=== PATIENT | female | born 1950 | race Caucasian/White ===

== ENCOUNTER → 2016-09-01 | Outpatient (CLI) | payer BC ==
--- NOTE | 2016-09-01 13:01 | REP ---
BILATERAL MAMMOGRAM: Bilateral mammogram performed in the MLO and CC projections. Comparison 05/17/2015 as well as other prior exams. Patient reports injury to the upper right breast with bruising 2-3 months ago. Ill-defined parenchymal opacity is seen in that region which is new. The remaining breast parenchyma is unchanged with no other evidence of new mass, architectural distortion or clustered microcalcifications. IMPRESSION: ACR 0 incomplete. Ill-defined parenchymal opacity in the upper right breast likely corresponds to injury and subsequent hematoma in the upper right breast. Recommend spot compression views and ultrasound to further evaluate. ACR 0 incomplete. BI-RADS/ACR category 0 mammogram. Incomplete: Additional imaging and/or prior images are needed before a final assessment can be assigned. This mammogram was interpreted with the aid of an FDA-approved computer-aided detection system. A. Negative x-ray reports should not delay biopsy if a dominant or clinically suspicious mass is present. B. Four to eight percent of cancers are not identified by x-ray. C. Adenosis and dense breasts may obscure an underlying neoplasm. The patient states she has not had a clinical breast exam in over a year. The patient letter being requested is M0.
== END ==
LOC: M WHC 10:07
PROVIDERS: ATTEND Family Medicine
DX: Z01.810 Encounter for preprocedural cardiovascular examination (principal); R92.8 Other abnormal and inconclusive findings on diagnostic imaging of breast; R32 Unspecified urinary incontinence; I10 Essential (primary) hypertension
CPT/HCPCS: 81001; 87086; G0202

== ENCOUNTER → 2016-09-22 | Outpatient (CLI) | payer BC ==
--- NOTE | 2016-09-22 12:01 | REP ---
RIGHT BREAST ULTRASOUND: 09/22/2016. Clinical history: The patient states breast trauma with fall and hematoma in March 2016. Tissue asymmetry on screening and diagnostic ultrasound this month. Comparison: Diagnostic mammogram 09/22/2016, screening 09/01/2016, 05/17/2015, 04/04/2014. Findings: Sonographic evaluation of the central right breast from the 11 to 1 o'clock position. No sonographically definable mass, fluid collection, dilated duct or architectural distortion identified within the parenchyma. Impression: 1. No sonographically definable mass, architectural distortion, cyst or dilated duct in the region of interest noted on the mammogram. Please see mammogram report this date for final assessment and recommendation. Signed by Jos Rowe MD 09/22/2016 05:06 P
--- NOTE | 2016-09-22 12:16 | REP ---
DIAGNOSTIC DIGITAL RIGHT MAMMOGRAM: 09/22/2016 COMPARISON: Breast ultrasound today, screening mammogram 09/01/2016, 05/17/2015, 04/04/2014, 12/05/2012. CLINICAL HISTORY: Trauma 5 months ago. Order states hematoma superior right breast. FINDINGS: Spot magnified right CC, MLO and true MLO images of the central and upper right breast in the area of tissue asymmetry on the screening mammogram earlier this month. The area does not compress out on CC view but does compress somewhat on the true MLO view. There is no mass appearance to this region. Instead it has the appearance of architectural distortion. There is some minor nodular tissue asymmetry laterally in the right breast upper outer quadrant and this is unchanged dating back several years. The right breast ultrasound showed no sonographic abnormality, fluid collection, mass or architectural distortion in the region in question at the noon position right breast. IMPRESSION: BIRADS ACR category 3, probably benign finding. Close interval followup recommended. Given the clinical appearance of the hematoma, appropriate history of trauma and the imaging appearance, I would suggest follow-up imaging with diagnostic right mammogram in 6 months time to document evolutionary changes in this finding. Ultrasound could be performed if clinically needed at that time as well. An earlier reassessment could be made if there are compelling changes to the clinical exam. BI-RADS/ACR category 3 mammogram. Probably benign findings. Initial short-term followup (usually 6 month) examination. This mammogram was interpreted with the aid of an FDA-approved computer-aided detection system. A. Negative x-ray reports should not delay biopsy if a dominant or clinically suspicious mass is present. B. Four to eight percent of cancers are not identified by x-ray. C. Adenosis and dense breasts may obscure an underlying neoplasm. The patient states that she/he has not had a clinical breast exam in over a year. The patient letter being requested is M3. Signed by Jos Rowe MD 09/22/2016 05:07 P
== END ==
LOC: M RAD 10:10
PROVIDERS: ATTEND Family Medicine
DX: R92.8 Other abnormal and inconclusive findings on diagnostic imaging of breast (principal)
CPT/HCPCS: 76642; G0206

== ENCOUNTER → 2017-04-06 | Outpatient (CLI) | payer BC ==
--- NOTE | 2017-04-06 16:23 | REP ---
Digital diagnostic unilateral right breast mammography with CAD: Six views: History: September 22, 2016 prior mammography was BIRADS category three probably benign. There was a history of trauma in a fall with evidence of a hematoma superior right breast. Comparison mammography is also reviewed from May 17, 2015. Mammographic findings: Routine CC MLO and true MLO views were obtained along with rolled CC views. The previously noted area of tissue asymmetry in the right superior breast has regressed in the interval since the August 2016 prior study although it is not completely resolved. A linear fibrotic area is seen on the CC view. This it is disbursed and not visualized on the MLO view. I suspect a small area of fat necrosis at the center of this. No mass lesion is seen. No microcalcification is observed. Impression: BIRADS category II benign right breast imaging. Annual screening mammography can be resumed. This mammogram was interpreted with the aid of an FDA-approved computer-aided detection system. The patient states she/he had a clinical breast exam in August 2016 The patient letter being requested is m2. Signed by Scott Garg MD 04/06/2017 05:31 P
== END ==
LOC: M RAD 13:39
PROVIDERS: ATTEND Family Medicine
DX: R92.8 Other abnormal and inconclusive findings on diagnostic imaging of breast (principal)

== ENCOUNTER 2017-06-16 08:29 | Emergency (ER) | payer BC ==
[~2017-06-16] VITALS: Ht 167.6 cm; Wt 97.7 kg
[2017-06-16] MEDS ORDERED: ASPI1TAB PO (08:47)
[2017-06-16] MEDS ORDERED: OXYC-517 (08:47)
[2017-06-16] MEDS ORDERED: LISINOPRIL-HCTZ (08:47)
[2017-06-16] MEDS ORDERED: CYCLOBENZAPRINE 10 MG TAB PO ONE (09:45)
[2017-06-16] MEDS ORDERED: CYCL10TA PO (09:53)
[2017-06-16 10:08] VITALS: BP 146/78
--- NOTE | 2017-06-16 19:33 | ECGEPIP ---
Stationary ECG Study [facility] - ED Test Date: 2017-06-16 Pat Name: JOHNATHON CHOWDHURY Department: Room: - Gender: F Butcher Helper: demetrice : 1950 Requested By: BLAISE CASTRO PA-C. Order Number: [id number] Reading MD: Blue Dinh Measurements Intervals [place] Rate: 87 P: 49 RI: 190 QRS: -17 QRSD: 105 T: 29 QT: 364 QTc: 439 Interpretive Statements SINUS RHYTHM NO PRIORS FOR COMPARISON Electronically Signed On 06-16-2017 19:33:14 EST by Blue Dinh
== END 2017-06-16 10:09 | disposition home or self-care (01) ==
LOC: M ED 08:29
DX: M62.830 Muscle spasm of back (principal); I10 Essential (primary) hypertension; Z79.82 Long term (current) use of aspirin; Z98.890 Other specified postprocedural states

== ENCOUNTER → 2017-12-08 | Outpatient (REF) | payer MEDICARE | LOC: M SFHCWAGY 15:41 | DX: R30.0 Dysuria (principal) | CPT/HCPCS: 87186 ==

== ENCOUNTER → 2018-04-05 | Outpatient (CLI) | payer MEDICARE | LOC: M WHC 13:20 | DX: Z12.31 Encounter for screening mammogram for malignant neoplasm of breast (principal); Z78.0 Asymptomatic menopausal state; Z92.0 Personal history of contraception | CPT/HCPCS: 77067 ==

== ENCOUNTER → 2018-04-05 | Outpatient (REF) | payer MEDICARE ==
[2018-04-06 09:11] LABS: HIV 1&2 SCREEN CENTAUR NEGATIVE (NEGATIVE)
[2018-04-07 14:15] LABS: HPV HYBRID CAPTURE II Positive (Negative)
== END ==
LOC: M SFHCWAGY 13:42
DX: Z01.419 Encounter for gynecological examination (general) (routine) without abnormal findings (principal); Z11.51 Encounter for screening for human papillomavirus (HPV)
CPT/HCPCS: 36415

== ENCOUNTER → 2018-07-15 | Outpatient (REF) | payer MEDICARE ==
[~2018-07-15] MED LIST: ASPI1TAB PO; CYCL10TA PO; LISINOPRIL-HCTZ; OXYC-517
[2018-07-15 16:53] LABS: BACTERIA, URINE AUTO NEGATIVE (NEGATIVE); MUCUS, URINE SMALL (NEGATIVE); RBC, URINE AUTO 0 /HPF (0-3); SQUAMOUS EPITHELIAL CELL UR AU 1 /HPF (0-6); WBC, URINE AUTO 1 /HPF (0-3)
== END ==
LOC: M SMT 16:00
PROVIDERS: ATTEND Specialist
DX: N32.81 Overactive bladder (principal)

== ENCOUNTER → 2019-06-15 | Outpatient (REF) | payer MEDICARE ==
[~2019-06-15] MED LIST changes: -ASPI1TAB PO; +ASPI81TA26 PO
== END ==
LOC: M PLALAB 15:58
PROVIDERS: ATTEND Nurse Practitioner Family
DX: Z12.4 Encounter for screening for malignant neoplasm of cervix (principal); N95.8 Other specified menopausal and perimenopausal disorders
CPT/HCPCS: 87624; G0123

== ENCOUNTER → 2019-06-15 | Outpatient (CLI) | payer MEDICARE ==
--- NOTE | 2019-06-15 19:09 | REPMRS ---
Patient History The patient states she had a clinical breast exam in 2018. No known family history of cancer. Took hormonal contraceptives for 9 years. Digital Woman Screen Mammo: June 15, 2019 - Exam #: [id number] Bilateral CC and MLO view(s) were taken. Technologist: Sophia Anna, Technologist Prior study comparison: April 05, 2018, bilateral digital woman screen mammo performed at [facility]. September 01, 2016, digital woman screen mammo performed at [facility] [place]. May 17, 2015, digital woman screen mammo performed at [facility]. FINDINGS: There are scattered fibroglandular densities. There has been no change in the appearance of the mammogram from the prior studies. There is a mild amount of scattered fibroglandular density which is fairly symmetric. There is no interval development of dominant mass, architectural distortion, or grouped microcalcification suggestive of malignancy. 3-D tomosynthesis shows no additional findings. Assessment: BI-RADS/ACR category 1 mammogram. Negative Mammogram. Recommendation Routine screening mammogram of both breasts in 1 year (for women over age 40). This patient's Lifetime Breast Cancer Risk is estimated at 5.3 %. This mammogram was interpreted with the aid of an FDA-approved computer-aided dectection system. Electronically Signed By: Den Garg MD 06/15/19 [id number]
== END ==
LOC: M WHC 15:09
PROVIDERS: ATTEND Nurse Practitioner Family
DX: Z12.31 Encounter for screening mammogram for malignant neoplasm of breast (principal); Z92.0 Personal history of contraception

== ENCOUNTER → 2021-01-28 | Outpatient (REF) | payer MEDICARE ==
[~2021-01-28] MED LIST changes: +CYCL-707 PO; -CYCL10TA PO
== END ==
LOC: M SFHCWAGY 18:21
PROVIDERS: ATTEND Nurse Practitioner Women's Health
DX: Z12.4 Encounter for screening for malignant neoplasm of cervix (principal); N95.2 Postmenopausal atrophic vaginitis

== ENCOUNTER → 2021-01-28 | Outpatient (CLI) | payer MEDICARE | LOC: M WHC 13:45 | PROVIDERS: ATTEND Nurse Practitioner Women's Health | DX: Z12.31 Encounter for screening mammogram for malignant neoplasm of breast (principal); Z92.0 Personal history of contraception ==

== ENCOUNTER → 2021-08-27 | Outpatient (CLI) | payer MEDICARE ==
[~2021-08-27] MED LIST changes: +LISI20TA35 PO; +OXYB15TA14 PO; +TYLE650T38 PO
== END ==
LOC: M LABSMTC 10:13
PROVIDERS: ATTEND Anesthesiology
DX: Z01.818 Encounter for other preprocedural examination (principal); Z11.52 Encounter for screening for COVID-19

== ENCOUNTER 2021-09-01 07:32 | Day surgery (SDC) | payer MEDICARE ==
[~2021-09-01] VITALS: Ht 167.6 cm; Wt 97.5 kg
[~2021-09-01 07:32] MED LIST changes: +NS 1,000 ML IV ONE
[2021-09-01] MEDS ORDERED: LIDOCAINE 2% 100MG/5ML SDV (FOR ANES.) As Ordered ONE ×2 (08:32→08:49)
[2021-09-01] MEDS ORDERED: propofoL 200 MG/20 ML VIAL As Ordered ONE (08:32)
[2021-09-01 09:20] VITALS: BP 186/71
== END 2021-09-01 09:32 | disposition home or self-care (01) ==
LOC: M OPP 07:32
PROVIDERS: ATTEND Internal Medicine Gastroenterology
DX: Z12.11 Encounter for screening for malignant neoplasm of colon (principal); K57.30 Diverticulosis of large intestine without perforation or abscess without bleeding; K64.8 Other hemorrhoids; I10 Essential (primary) hypertension; M19.90 Unspecified osteoarthritis, unspecified site; M54.30 Sciatica, unspecified side; R01.1 Cardiac murmur, unspecified; Z96.652 Presence of left artificial knee joint; Z79.899 Other long term (current) drug therapy; Z83.3 Family history of diabetes mellitus; Z80.1 Family history of malignant neoplasm of trachea, bronchus and lung; Z82.49 Family history of ischemic heart disease and other diseases of the circulatory system

== ENCOUNTER → 2022-09-03 | Outpatient (CLI) | payer MEDICARE ==
[~2022-09-03] MED LIST changes: -NS 1,000 ML IV ONE
== END ==
LOC: M WHC 13:14
PROVIDERS: ATTEND Family Medicine
DX: Z12.31 Encounter for screening mammogram for malignant neoplasm of breast (principal); Z13.820 Encounter for screening for osteoporosis

== ENCOUNTER → 2023-10-13 | Outpatient (CLI) | payer MEDICARE | LOC: M PLAIMG 09:28 | PROVIDERS: ATTEND Family Medicine | DX: I71.20 Thoracic aortic aneurysm, without rupture, unspecified (principal) ==

== ENCOUNTER → 2023-12-27 | Outpatient (CLI) | payer MEDICARE | LOC: M WHC 10:09 | PROVIDERS: ATTEND Family Medicine | DX: Z12.31 Encounter for screening mammogram for malignant neoplasm of breast (principal) ==

== ENCOUNTER → 2024-04-03 | Outpatient (REF) | payer MEDICARE | LOC: M LAB REF 16:30 | PROVIDERS: ATTEND Family Medicine | DX: N39.0 Urinary tract infection, site not specified (principal) ==

== ENCOUNTER → 2024-04-19 | Outpatient (REF) | payer MEDICARE ==
[2024-04-19 15:57] LABS: APPEARANCE, URINE HAZY (CLEAR); BACTERIA, URINE AUTO 1+ (NEGATIVE); BILIRUBIN, URINE AUTO NEGATIVE (NEGATIVE); BLOOD, URINE BLOOD NEGATIVE (NEGATIVE); COLOR, URINE YELLOW (YELLOW); GLUCOSE, URINE (UA) AUTO NEGATIVE (NEGATIVE); KETONE, URINE AUTO NEGATIVE (NEGATIVE); LEUKOCYTE ESTERASE, URINE AUTO 3+ (NEGATIVE); MUCUS, URINE SMALL (NEGATIVE); NITRITE, URINE AUTO NEGATIVE (NEGATIVE); PROTEIN, URINE AUTO NEGATIVE (NEGATIVE); RBC, URINE AUTO 1 /HPF (0-3); SPECIFIC GRAVITY URINE AUTO 1.017 (1.002-1.035); SQUAMOUS EPITHELIAL CELL UR AU 0 /HPF (0-6); UROBILINOGEN, URINE AUTO 0.2 mg/dL (0.0-2.0); WBC, URINE AUTO TNTC /HPF (0-3)
== END ==
LOC: M SMT 14:35
PROVIDERS: ATTEND Nurse Practitioner Family
DX: R35.0 Frequency of micturition (principal)

== ENCOUNTER → 2024-10-19 | Outpatient (REF) | payer MEDICARE | LOC: M LAB REF 13:45 | PROVIDERS: ATTEND Family Medicine | DX: Z11.59 Encounter for screening for other viral diseases (principal) ==